=== PATIENT | female | born 1980 | race Caucasian/White ===

== ENCOUNTER → 2022-04-28 | Outpatient (CLI) | payer BC | LOC: M WUC 11:41 | PROVIDERS: ATTEND Nurse Practitioner Family | DX: Z00.00 Encounter for general adult medical examination without abnormal findings (principal) ==

== ENCOUNTER → 2022-05-05 | Outpatient (REF) | payer BC ==
[2022-05-05 16:32] LABS: ALBUMIN 3.5 GM/DL (3.2-5.2); ALT/SGPT 18 U/L (12-78); BILIRUBIN,TOTAL 0.6 MG/DL (0.2-1.0); BLOOD UREA NITROGEN 12 MG/DL (7-18); CALCIUM LEVEL 8.6 MG/DL (8.5-10.1); CARBON DIOXIDE LEVEL 26 MEQ/L (21-32); CHLORIDE LEVEL 108 MEQ/L (98-107); CHOLESTEROL LEVEL 194 MG/DL (<200); CHOLESTEROL RISK RATIO 3.288 (<5); CREATININE FOR GFR 0.89 MG/DL (0.55-1.30); GLOMERULAR FILTRATION RATE > 60.0 (>58); GLUCOSE, FASTING 99 MG/DL (70-100); HDL CHOLESTEROL 59 MG/DL (>40); LDL CHOLESTEROL 122 MG/DL (<100); NON-HDL-C 135 MG/DL; POTASSIUM SERUM 4.1 MEQ/L (3.5-5.1); SODIUM LEVEL 140 MEQ/L (136-145); TOTAL PROTEIN 6.9 GM/DL (6.4-8.2); TRIGLYCERIDES LEVEL 64 MG/DL (<150)
== END ==
LOC: M LABWUC 15:41
PROVIDERS: ATTEND Nurse Practitioner Family
DX: Z00.00 Encounter for general adult medical examination without abnormal findings (principal)

== ENCOUNTER → 2022-08-07 | Outpatient (CLI) | payer BC ==
[2022-08-07 12:16] LABS: FREE T4 0.92 NG/DL (0.76-1.46); THYROID STIMULATING HORMONE 1.91 uIU/ML (0.358-3.740)
== END ==
LOC: M LAB 10:19
PROVIDERS: ATTEND Internal Medicine Endocrinology, Diabetes & Metabolism
DX: E03.9 Hypothyroidism, unspecified (principal)

== ENCOUNTER → 2022-10-28 | Outpatient (CLI) | payer BC ==
[2022-10-28 09:34] LABS: FREE T4 1.45 NG/DL (0.89-1.76); THYROID STIMULATING HORMONE 1.454 uIU/ML (0.55-4.78)
== END ==
LOC: M LAB 08:45
PROVIDERS: ATTEND Nurse Practitioner Family
DX: E03.9 Hypothyroidism, unspecified (principal)

== ENCOUNTER → 2022-11-20 | Outpatient (CLI) | payer BC | LOC: M LAB 16:29 | DX: Z79.899 Other long term (current) drug therapy (principal) ==

== ENCOUNTER → 2023-02-24 | Outpatient (CLI) | payer BC ==
[2023-02-24 10:33] LABS: FREE T4 1.18 NG/DL (0.89-1.76)
[2023-02-24 10:34] LABS: THYROID STIMULATING HORMONE 2.903 uIU/ML (0.55-4.78)
== END ==
LOC: M LAB 09:39
PROVIDERS: ATTEND Nurse Practitioner Family
DX: E03.9 Hypothyroidism, unspecified (principal)

== ENCOUNTER 2023-05-29 12:53 | Emergency (ER) | payer BC ==
[~2023-05-29] VITALS: Ht 154.9 cm; Wt 72.7 kg
[2023-05-29] MEDS ORDERED: MAALOX 30 ML SUSP *UDC PO ONE (13:05)
[2023-05-29] MEDS ORDERED: diazePAM 10MG/2ML SYRINGE IV ONE (13:15)
[2023-05-29] MEDS ORDERED: ASPIRIN 81MG CHEW TABLET PO ONE (13:15)
[2023-05-29] MEDS ORDERED: AMIT75TA (13:17)
[2023-05-29] MEDS ORDERED: LEVO75TA4 (13:17)
[2023-05-29] MEDS ORDERED: ARIP1TAB6 (13:17)
[2023-05-29] MEDS ORDERED: SERT50TA29 (13:17)
[2023-05-29] MEDS ORDERED: ESOM40CA35 (13:17)
[2023-05-29] MEDS ORDERED: CLON1TAB8 (13:17)
[2023-05-29] MEDS ORDERED: PRUC2TAB (13:17)
[2023-05-29] MEDS ORDERED: GABA250S6 (13:17)
[2023-05-29 13:42] LABS: BASO % 0.5 % (0.0-1.0); EOS # 0.1 10^3/uL (0.0-0.5); EOS % 1.3 % (0.0-3.0); HEMATOCRIT 36.8 % (36.0-47.0); HEMOGLOBIN 11.6 g/dl (12.0-15.5); LYMPH % 17.9 % (24.0-44.0); MEAN CORPUSCULAR HEMOGLOBIN 28.4 pg (27.0-33.0); MEAN CORPUSCULAR HGB CONC 31.5 g/dl (32.0-36.5); MEAN CORPUSCULAR VOLUME 90.2 fl (80.0-96.0); MONO # 0.5 10^3/uL (0.0-0.8); MONO % 8.6 % (2.0-8.0); NEUTROPHILS # 3.9 10^3/uL (1.5-8.5); NEUTROPHILS % 70.4 % (36.0-66.0); PLATELET COUNT, AUTOMATED 297 10^3/uL (150-450); RED BLOOD COUNT 4.08 10^6/uL (4.00-5.40); WHITE BLOOD COUNT 5.6 10^3/uL (4.0-10.0)
[2023-05-29 14:02] LABS: LIPASE 23 U/L (12-53)
[2023-05-29 14:04] LABS: ALBUMIN 3.4 G/DL (3.2-5.2); ALKALINE PHOSPHATASE 95 U/L (46-116); ALT/SGPT 14 U/L (7.0-40); AST/SGOT 10 U/L (<34); BILIRUBIN,DIRECT 0.2 MG/DL (<0.4); BILIRUBIN,TOTAL 0.6 MG/DL (0.3-1.2); BLOOD UREA NITROGEN 7 MG/DL (9-23); CALCIUM LEVEL 8.2 MG/DL (8.5-10.1); CARBON DIOXIDE LEVEL 27 MMOL/L (20-31); CHLORIDE LEVEL 105 MMOL/L (98-107); CK-MB VALUE MASS < 1.0 NG/ML (<3.6); CPK CREATINE PHOSPHOKINASE 87 U/L (34-145); CREATININE FOR GFR 0.67 MG/DL (0.55-1.30); GLOMERULAR FILTRATION RATE > 60.0 (>58); GLUCOSE, FASTING 88 MG/DL (60-100); MB/CK RELATIVE INDEX 1.14 (< OR =4); POTASSIUM SERUM 4.1 MMOL/L (3.5-5.1); SODIUM LEVEL 138 MMOL/L (136-145); TOTAL PROTEIN 6.6 G/DL (5.7-8.2)
[2023-05-29 14:06] LABS: FREE T4 1.17 NG/DL (0.89-1.76)
[2023-05-29 14:07] LABS: INR 0.94; PROTHROMBIN TIME 12.8 SECONDS (12.5-14.5)
[2023-05-29 15:17] LABS: CK-MB VALUE MASS < 1.0 NG/ML (<3.6)
[2023-05-29 15:19] LABS: CPK CREATINE PHOSPHOKINASE 83 U/L (34-145)
[2023-05-29 16:07] VITALS: BP 127/70; TEMP 98; O2SAT 100
== END 2023-05-29 16:08 | disposition home or self-care (01) ==
LOC: M ED 12:53 → EDBD 12:53 → M ED 16:08
DX: F41.9 Anxiety disorder, unspecified (principal); R07.89 Other chest pain; Z88.8 Allergy status to other drugs, medicaments and biological substances; Z88.6 Allergy status to analgesic agent; Z79.899 Other long term (current) drug therapy; Z79.890 Hormone replacement therapy

== ENCOUNTER → 2023-06-26 | Outpatient (CLI) | payer BC ==
[~2023-06-26] MED LIST: AMIT75TA; ARIP1TAB6; CLON1TAB8; ESOM40CA35; GABA250S6; LEVO75TA4; PRUC2TAB; SERT50TA29
== END ==
LOC: M PLAIMG 11:10
PROVIDERS: ATTEND Otolaryngology
DX: J32.0 Chronic maxillary sinusitis (principal)

== ENCOUNTER → 2023-08-29 | Outpatient (CLI) | payer BC ==
[2023-08-29 14:04] LABS: FREE T4 1.03 NG/DL (0.89-1.76)
[2023-08-29 14:05] LABS: THYROID STIMULATING HORMONE 5.668 uIU/ML (0.55-4.78)
== END ==
LOC: M LAB 12:13
PROVIDERS: ATTEND Nurse Practitioner Family
DX: E03.9 Hypothyroidism, unspecified (principal)

== ENCOUNTER → 2023-09-28 | Outpatient (REF) | LOC: M EMP 10:39 | PROVIDERS: ATTEND Family Medicine | DX: Z11.52 Encounter for screening for COVID-19 (principal) ==

== ENCOUNTER → 2023-11-27 | Outpatient (CLI) | payer BC ==
[2023-11-27 12:14] LABS: THYROID STIMULATING HORMONE 1.002 uIU/ML (0.55-4.78)
[2023-11-27 12:15] LABS: FREE T4 1.22 NG/DL (0.89-1.76)
== END ==
LOC: M LAB 10:39
PROVIDERS: ATTEND Nurse Practitioner Family
DX: E03.9 Hypothyroidism, unspecified (principal)

== ENCOUNTER → 2023-12-11 | Outpatient (CLI) | payer BC ==
[2023-12-11 11:38] LABS: BASO % 0.6 % (0.0-1.0); EOS # 0.1 10^3/uL (0.0-0.5); EOS % 1.4 % (0.0-3.0); HEMATOCRIT 35.8 % (36.0-47.0); HEMOGLOBIN 11.5 g/dl (12.0-15.5); LYMPH # 1.1 10^3/uL (1.5-5.0); LYMPH % 21.7 % (24.0-44.0); MEAN CORPUSCULAR HEMOGLOBIN 27.7 pg (27.0-33.0); MEAN CORPUSCULAR HGB CONC 32.1 g/dl (32.0-36.5); MEAN CORPUSCULAR VOLUME 86.3 fl (80.0-96.0); MONO # 0.5 10^3/uL (0.0-0.8); MONO % 9.6 % (2.0-8.0); NEUTROPHILS # 3.3 10^3/uL (1.5-8.5); NEUTROPHILS % 66.1 % (36.0-66.0); PLATELET COUNT, AUTOMATED 384 10^3/uL (150-450); RED BLOOD COUNT 4.15 10^6/uL (4.00-5.40)
[2023-12-11 11:50] LABS: HEMOGLOBIN A1c 5.4 % (4.0-6.0)
[2023-12-11 12:10] LABS: ALBUMIN 3.1 G/DL (3.2-5.2); ALKALINE PHOSPHATASE 98 U/L (46-116); ALT/SGPT 19 U/L (7.0-40); AST/SGOT 15 U/L (<34); BILIRUBIN,TOTAL 0.4 MG/DL (0.3-1.2); BLOOD UREA NITROGEN 12 MG/DL (9-23); CALCIUM LEVEL 8.4 MG/DL (8.5-10.1); CARBON DIOXIDE LEVEL 27 MMOL/L (20-31); CHLORIDE LEVEL 109 MMOL/L (98-107); CREATININE FOR GFR 0.78 MG/DL (0.55-1.30); FOLATE 19.4 NG/ML (>5.4); GLOMERULAR FILTRATION RATE > 60.0 (>58); GLUCOSE, FASTING 98 MG/DL (60-100); IRON (FE) 24 UG/DL (50-170); MAGNESIUM LEVEL 1.8 MG/DL (1.8-2.4); POTASSIUM SERUM 4.6 MMOL/L (3.5-5.1); SODIUM LEVEL 138 MMOL/L (136-145); TOTAL IRON BINDING CAPACITY 399 UG/DL (250-425); TOTAL PROTEIN 6.8 G/DL (5.7-8.2)
[2023-12-11 12:11] LABS: VITAMIN B12 LEVEL 672 PG/ML (211-911)
[2023-12-11 12:12] LABS: FERRITIN 6.8 NG/ML (7.3-270.7)
== END ==
LOC: M LAB 10:09
PROVIDERS: ATTEND Registered Nurse
DX: R53.83 Other fatigue (principal)

== ENCOUNTER → 2024-01-18 | Outpatient (CLI) | payer BC | LOC: M WUC 13:34 | PROVIDERS: ATTEND Registered Nurse | DX: M54.50 Low back pain, unspecified (principal) ==

== ENCOUNTER → 2024-02-19 | Outpatient (CLI) | payer BC ==
[2024-02-19 11:42] LABS: BASO % 0.9 % (0.0-1.0); EOS # 0.1 10^3/uL (0.0-0.5); EOS % 1.3 % (0.0-3.0); HEMATOCRIT 37.5 % (36.0-47.0); HEMOGLOBIN 12.4 g/dl (12.0-15.5); LYMPH % 22.8 % (24.0-44.0); MEAN CORPUSCULAR HEMOGLOBIN 29.3 pg (27.0-33.0); MEAN CORPUSCULAR HGB CONC 33.1 g/dl (32.0-36.5); MEAN CORPUSCULAR VOLUME 88.7 fl (80.0-96.0); MONO # 0.4 10^3/uL (0.0-0.8); MONO % 9.4 % (2.0-8.0); NEUTROPHILS % 64.9 % (36.0-66.0); PLATELET COUNT, AUTOMATED 311 10^3/uL (150-450); RED BLOOD COUNT 4.23 10^6/uL (4.00-5.40); WHITE BLOOD COUNT 4.6 10^3/uL (4.0-10.0)
[2024-02-19 12:21] LABS: IRON (FE) 88 UG/DL (50-170)
[2024-02-19 12:42] LABS: ALBUMIN 3.3 G/DL (3.2-5.2); ALKALINE PHOSPHATASE 100 U/L (46-116); ALT/SGPT 20 U/L (7.0-40); AST/SGOT 13 U/L (<34); BILIRUBIN,TOTAL 0.7 MG/DL (0.3-1.2); BLOOD UREA NITROGEN 9 MG/DL (9-23); CALCIUM LEVEL 8.7 MG/DL (8.5-10.1); CARBON DIOXIDE LEVEL 28 MMOL/L (20-31); CHLORIDE LEVEL 105 MMOL/L (98-107); CREATININE FOR GFR 0.76 MG/DL (0.55-1.30); FERRITIN 19.5 NG/ML (7.3-270.7); FREE T4 1.18 NG/DL (0.89-1.76); GLOMERULAR FILTRATION RATE > 60.0 (>58); GLUCOSE, FASTING 110 MG/DL (60-100); PERCENT SATURATION 21.7 % (13.2-45.0); POTASSIUM SERUM 4.1 MMOL/L (3.5-5.1); SODIUM LEVEL 139 MMOL/L (136-145); THYROID STIMULATING HORMONE 2.257 uIU/ML (0.55-4.78); TOTAL IRON BINDING CAPACITY 405 UG/DL (250-425); TOTAL PROTEIN 6.5 G/DL (5.7-8.2)
== END ==
LOC: M LAB 10:52
PROVIDERS: ATTEND Registered Nurse
DX: D50.9 Iron deficiency anemia, unspecified (principal)

== ENCOUNTER → 2024-03-18 | Outpatient (CLI) | payer BC ==
[2024-03-18 10:32] LABS: URIC ACID 4.4 MG/DL (3.1-7.8)
[2024-03-18 10:33] LABS: MAGNESIUM LEVEL 1.8 MG/DL (1.8-2.4)
[2024-03-18 10:34] LABS: C REACTIVE PROTEIN QUANTITATIV 1.2 MG/DL (<1.0)
[2024-03-18 10:35] LABS: RHEUMATOID FACTOR QUANT 8.6 IU/ML (<14)
[2024-03-18 10:43] LABS: TOTAL 25(OH) VITAMIN D 21.4 NG/ML (20.0-100.0)
[2024-03-18 12:02] LABS: CORTISOL AM 18.1 UG/DL (4.3-22.4)
== END ==
LOC: M LAB 09:15
PROVIDERS: ATTEND Registered Nurse
DX: R53.83 Other fatigue (principal)

== ENCOUNTER → 2024-06-04 | Outpatient (CLI) | payer BC ==
[2024-06-04 12:43] LABS: BASO % 0.5 % (0.0-1.0); EOS # 0.1 10^3/uL (0.0-0.5); EOS % 2.5 % (0.0-3.0); HEMATOCRIT 38.2 % (36.0-47.0); LYMPH # 0.9 10^3/uL (1.5-5.0); LYMPH % 21.7 % (24.0-44.0); MEAN CORPUSCULAR HEMOGLOBIN 31.3 pg (27.0-33.0); MONO # 0.4 10^3/uL (0.0-0.8); MONO % 8.5 % (2.0-8.0); NEUTROPHILS # 2.8 10^3/uL (1.5-8.5); NEUTROPHILS % 65.4 % (36.0-66.0); PLATELET COUNT, AUTOMATED 314 10^3/uL (150-450); RED BLOOD COUNT 4.15 10^6/uL (4.00-5.40); WHITE BLOOD COUNT 4.3 10^3/uL (4.0-10.0)
[2024-06-04 13:06] LABS: IRON (FE) 97 UG/DL (50-170); PERCENT SATURATION 26.2 % (13.2-45.0); TOTAL IRON BINDING CAPACITY 370 UG/DL (250-425)
[2024-06-04 13:08] LABS: FREE T4 1.32 NG/DL (0.89-1.76)
[2024-06-04 13:09] LABS: FERRITIN 27.5 NG/ML (7.3-270.7); THYROID STIMULATING HORMONE 3.637 uIU/ML (0.55-4.78)
[2024-06-04 13:10] LABS: THYROID PEROXIDASE ANTIBODY > 1300.0 U/ML (<60.0)
== END ==
LOC: M LAB 11:59
PROVIDERS: ATTEND Registered Nurse
DX: E03.9 Hypothyroidism, unspecified (principal); D50.9 Iron deficiency anemia, unspecified

== ENCOUNTER → 2025-01-05 | Outpatient (CLI) | payer BC ==
[~2025-01-05] MED LIST changes: +E-Z-GAS II EFFERVESCENT PACKET (SODIUM BICARB./CITRIC ACID/SIMETHICONE) As Ordered ONE; +E-Z-HD 98% w/w 340GM SUSP BTL As Ordered ONE; +E-Z-PAQUE 96% w/w SUSP 176GM BTL As Ordered ONE
== END ==
LOC: M RAD 07:26
PROVIDERS: ATTEND Registered Nurse
DX: K21.9 Gastro-esophageal reflux disease without esophagitis (principal)

== ENCOUNTER → 2025-01-17 | Outpatient (CLI) | payer BC ==
[~2025-01-17] MED LIST changes: -E-Z-GAS II EFFERVESCENT PACKET (SODIUM BICARB./CITRIC ACID/SIMETHICONE) As Ordered ONE; -E-Z-HD 98% w/w 340GM SUSP BTL As Ordered ONE; -E-Z-PAQUE 96% w/w SUSP 176GM BTL As Ordered ONE
[2025-01-17 11:46] LABS: BASO % 0.8 % (0.0-1.0); EOS # 0.1 10^3/uL (0.0-0.5); EOS % 2.3 % (0.0-3.0); HEMATOCRIT 40.9 % (36.0-47.0); HEMOGLOBIN 14.2 g/dl (12.0-15.5); LYMPH # 0.9 10^3/uL (1.5-5.0); LYMPH % 17.4 % (24.0-44.0); MEAN CORPUSCULAR HEMOGLOBIN 31.3 pg (27.0-33.0); MEAN CORPUSCULAR HGB CONC 34.7 g/dl (32.0-36.5); MEAN CORPUSCULAR VOLUME 90.1 fl (80.0-96.0); MONO # 0.5 10^3/uL (0.0-0.8); MONO % 8.9 % (2.0-8.0); NEUTROPHILS # 3.6 10^3/uL (1.5-8.5); NEUTROPHILS % 68.7 % (36.0-66.0); PLATELET COUNT, AUTOMATED 340 10^3/uL (150-450); RED BLOOD COUNT 4.54 10^6/uL (4.00-5.40); WHITE BLOOD COUNT 5.2 10^3/uL (4.0-10.0)
[2025-01-17 12:24] LABS: LIPASE 26 U/L (12-53)
[2025-01-17 12:26] LABS: AMYLASE 61 U/L (30-118); IRON (FE) 95 UG/DL (50-170); PERCENT SATURATION 26.8 % (13.2-45.0); TOTAL IRON BINDING CAPACITY 354 UG/DL (250-425)
[2025-01-17 12:27] LABS: ALBUMIN 3.3 G/DL (3.2-5.2); ALKALINE PHOSPHATASE 106 U/L (35-104); ALT/SGPT 22 U/L (7.0-40); AST/SGOT 16 U/L (<34); BILIRUBIN,TOTAL 0.7 MG/DL (0.3-1.2); BLOOD UREA NITROGEN 11 MG/DL (9-23); CALCIUM LEVEL 8.7 MG/DL (8.5-10.1); CARBON DIOXIDE LEVEL 26 MMOL/L (20-31); CHLORIDE LEVEL 106 MMOL/L (98-107); CREATININE FOR GFR 0.75 MG/DL (0.55-1.30); FERRITIN 38.8 NG/ML (7.3-270.7); FREE T4 1.23 NG/DL (0.89-1.76); GLOMERULAR FILTRATION RATE > 60.0 (>58); GLUCOSE, FASTING 95 MG/DL (60-100); POTASSIUM SERUM 4.6 MMOL/L (3.5-5.1); SODIUM LEVEL 141 MMOL/L (136-145); THYROID STIMULATING HORMONE 2.559 uIU/ML (0.55-4.78); TOTAL PROTEIN 7.1 G/DL (5.7-8.2)
[2025-01-17 12:28] LABS: FOLATE 9.9 NG/ML (>5.4); TOTAL 25(OH) VITAMIN D 13.4 NG/ML (20.0-100.0); VITAMIN B12 LEVEL 582 PG/ML (211-911)
[2025-01-17 12:52] LABS: THYROID PEROXIDASE ANTIBODY > 1300.0 U/ML (<60.0)
== END ==
LOC: M LAB 11:25
PROVIDERS: ATTEND Registered Nurse
DX: K21.9 Gastro-esophageal reflux disease without esophagitis (principal); E03.9 Hypothyroidism, unspecified; D50.9 Iron deficiency anemia, unspecified

== ENCOUNTER 2025-05-15 08:59 | Day surgery (SDC) | payer BC ==
[~2025-05-15] VITALS: Ht 154.9 cm; Wt 96.6 kg
[~2025-05-15 08:59] MED LIST changes: +ACETAMINOPHEN 1000MG/100ML IV BAG As Ordered ONE; +GLYCOPYRROLATE INJ 0.2 MG/ML 2 ML VIAL As Ordered ONE; +KETOROLAC 30 MG/ML 1 ML VIAL As Ordered ONE; +LEVO88TA3 PO; +LIDOCAINE 2% 100 MG/5 ML SDV (FOR ANES.) As Ordered ONE; +MIDAZOLAM INJ 2 MG/2 ML VIAL As Ordered ONE; +ONDANSETRON 4MG 2ML VIAL As Ordered ONE; +PANT40TA29 PO; +ZOLO100T PO; +dexAMETHasone 4 MG/ML 1 ML VIAL As Ordered ONE
[2025-05-15] MEDS: ONDANSETRON 4MG 2ML VIAL IV PRN (12:56)
[2025-05-15 14:13] VITALS: BP 125/86; TEMP 98.1; O2SAT 98
== END 2025-05-15 14:35 | disposition home or self-care (01) ==
LOC: M SDC 08:59
PROVIDERS: ATTEND Surgery
DX: L05.91 Pilonidal cyst without abscess (principal); E03.9 Hypothyroidism, unspecified; J45.909 Unspecified asthma, uncomplicated; K31.84 Gastroparesis; K58.1 Irritable bowel syndrome with constipation; K21.9 Gastro-esophageal reflux disease without esophagitis; Z79.899 Other long term (current) drug therapy; Z79.890 Hormone replacement therapy; F32.A Depression, unspecified; F41.9 Anxiety disorder, unspecified; Z88.6 Allergy status to analgesic agent; Z88.8 Allergy status to other drugs, medicaments and biological substances
CPT/HCPCS: 11770; 81025; 88304; J1100; J1596; J1885; J2250; J2405; J3010